=== PATIENT | female | born 1995 | race Caucasian/White ===

== ENCOUNTER 2016-06-25 23:10 | Observation (INO) | payer MEDICAID, OTHER ==
[~2016-06-25] VITALS: Ht 160 cm; Wt 54.4 kg
[2016-06-26] MEDS ORDERED: LACTATED RINGER'S 1,000 ML IV ONE (00:23)
[2016-06-26] MEDS: LACTATED RINGER'S 1,000 ML IV SCH ×2 (00:41→04:57)
[2016-06-26] MEDS: TERBUTALINE SULFATE 1 MG/ML 1ML VIAL SC SCH ×2 (00:49→01:09)
[2016-06-26] MEDS ORDERED: NIFEdipine 10 MG CAP ONE (01:43)
[2016-06-26 02:00] LABS: Basophils # (auto) 0.1 uL; Basophils % (auto) 0.5 % (0.0-2.0); DEFINITIVE VIEW TRANSMISSION; Eosinophils # (auto) 0.1 uL; Eosinophils % (auto) 0.5 % (0.0-7.0); Hemoglobin 9.7 g/dL (12.2-16.2); Lymphocytes % (auto) 28.6 % (10.0-50.0); Mean Corpuscular Hgb Conc. 31.3 g/dL (32.0-36.0); Mean Platelet Volume 8.4 fL (7.4-10.4); Monocytes # (auto) 0.8 uL; Monocytes % (auto) 7.8 % (0.0-12.0); Neutrophils # (auto) 6.5 uL; Neutrophils % (auto) 62.6 % (37.0-80.0); Platelet Count (auto) 313 10^3/uL (140-450); White Blood Cell 10.5 10^3/uL (4.4-10.8)
[2016-06-26] MEDS ORDERED: NIFEdipine 10 MG CAP PO ONE (02:00)
[2016-06-26 02:15] LABS: Albumin 2.3 g/dL (3.4-5.0); BUN/Creatinine Ratio 12.1; Calcium 7.9 mg/dL (8.5-10.1)
[2016-06-26 02:19] LABS: Bilirubin, Total 0.1 mg/dL (0.2-1.0); Total Protein 6.1 g/dL (6.4-8.2)
[2016-06-26 02:21] LABS: Potassium 2.6 mmol/L (3.5-5.1)
[2016-06-26 02:26] LABS: INR 0.93 (0.9-1.15); Partial Thromboplastin Time 24.7 sec (22.64-33.71); Prothrombin Time 9.6 sec (9.37-12.3)
[2016-06-26] MEDS ORDERED: POTASSIUM CHL 20MEQ/100ML 200 ML IV ONE (02:26)
[2016-06-26 02:29] LABS: Hypochromia Slight; Platelet Estimate Adequate
[2016-06-26 02:30] LABS: Anisocytosis Slight; Hypersegmented Neutrophils Present; Microcytosis Slight; Ovalocytes FEW
[2016-06-26] MEDS ORDERED: POTASSIUM CHL 20MEQ/100ML 100 ML IV ONE (02:30)
[2016-06-26] MEDS: NIFEdipine 10 MG CAP PO SCH ×2 (05:43→09:53)
[2016-06-26] MEDS ORDERED: ACETAMINOPHEN 325 MG TAB PO PRN (06:45)
[2016-06-26] MEDS ORDERED: POTASSIUM CHL 20 Meq TABLET PO ONE (08:30)
[2016-06-30] MEDS ORDERED: PREN-125 PO (23:02)
[2016-06-30] MEDS ORDERED: NIF10C PO (23:02)
== END 2016-06-26 12:05 | disposition home or self-care (01) | DRG 566 ==
LOC: EDUNIT# 23:10 → LDRP 23:10
PROVIDERS: ADMIT Specialist; ATTEND Specialist
DX: O62.9 Abnormality of forces of labor, unspecified (principal); O99.333 Smoking (tobacco) complicating pregnancy, third trimester; R51 Headache; Z3A.33 33 weeks gestation of pregnancy
CPT/HCPCS: 36415; 59025; 76805; 76818; 80053; 81001; 81002; 84132; 85025; 85049; 85610; 85730; 86592; 86703; 86762; 86850; 86900; 86901; 87340; 96360; 96361; 96372; G0378; G0434; J3105; J3480; 96365; 96366